=== PATIENT | male | born 1965 | race Caucasian/White ===

== ENCOUNTER 2024-03-28 09:49 | Day surgery (SDC) | payer BC ==
[2024-03-25 11:44] VITALS: BMI 35.6
[2024-03-28] MEDS ORDERED: Midazolam HCl 2 mg/2 ml Vial ONE (11:33)
[2024-03-28] MEDS ORDERED: fentaNYL PF 100 MCG/2 ML SYRINGE ONE (11:33)
[2024-03-28] MEDS ORDERED: HYDROmorphone 2 MG/ML VIAL ONE (13:13)
[2024-03-28] MEDS ORDERED: Labetalol HCl 100 MG/20 ML VIAL ONE (13:18)
[2024-03-28] MEDS ORDERED: hydrALAZINE 20 MG/ML VIAL ONE (14:25)
== END 2024-03-28 14:22 | disposition home or self-care (01) ==
LOC: MRI 09:49
PROVIDERS: ATTEND Family Medicine
DX: M54.16 Radiculopathy, lumbar region (principal); E29.9 Testicular dysfunction, unspecified; R03.0 Elevated blood-pressure reading, without diagnosis of hypertension; G47.33 Obstructive sleep apnea (adult) (pediatric); E66.9 Obesity, unspecified; Z90.49 Acquired absence of other specified parts of digestive tract; Z98.890 Other specified postprocedural states; Z88.0 Allergy status to penicillin; Z79.899 Other long term (current) drug therapy; Z68.35 Body mass index [BMI] 35.0-35.9, adult
CPT/HCPCS: 72148; J0360; J1171; J2250